=== PATIENT | female | born 2000 | race Caucasian/White ===

== ENCOUNTER 2020-02-21 17:04 | Emergency (ER) | payer OTHER ==
[~2020-02-21 17:04] MED LIST: COLACE 100MG C100 MG PO; FEOSOL325 MG PO; IBUPROFEN600 MG PO; NORCO 10-325 T1 EACH PO
[2020-02-21 17:52] LABS: HEMOGLOBIN 11.2 gm/dl (12.3-15.3); RED BLOOD COUNT 4.26 M/UL (4.00-5.10); WHITE BLOOD COUNT 10.6 K/UL (4.5-11.0)
[2020-02-21 18:13] LABS: BUN/CREATININE RATIO 7 (0-10)
[2020-04-28] MEDS ORDERED: DOCUSATE SODIU100 MG PO (12:59)
[2020-04-28] MEDS ORDERED: HYDROCODONE-AC1 EAC1 PO (12:59)
[2020-04-28] MEDS ORDERED: IBUPROFEN800 MG PO (12:59)
== END 2020-02-21 19:49 | disposition home or self-care (01) ==
LOC: ER1 17:04
PROVIDERS: Emergency Medicine
DX: R55 Syncope and collapse (principal)
CPT/HCPCS: 80053; 82550; 82553; 83874; 83880; 84484; 85025; 93005; 99284; J7030

== ENCOUNTER 2020-04-28 08:00 | Inpatient (IN) | payer OTHER ==
[~2020-04-28] VITALS: Ht 147.3 cm; Wt 74.8 kg
[2020-04-28] MEDS ORDERED: HYDROCODONE-AC1 EAC1 PO (12:59)
[2020-04-28] MEDS ORDERED: DOCUSATE SODIU100 MG PO (12:59)
[2020-04-28] MEDS ORDERED: IBUPROFEN800 MG PO (12:59)
[2020-04-29 06:19] LABS: HEMOGLOBIN 8.7 gm/dl (12.3-15.3)
== END 2020-04-29 16:02 | disposition home or self-care (01) | DRG 788 ==
LOC: OB 08:13
PROVIDERS: ADMIT Obstetrics & Gynecology
PROC: 10D00Z1 Extraction of Products of Conception, Low, Open Approach (ICD-10-PCS; principal; 2020-04-28 09:30)
DX: O34.211 Maternal care for low transverse scar from previous cesarean delivery (principal); Z3A.39 39 weeks gestation of pregnancy; Z37.0 Single live birth
CPT/HCPCS: 36415; 81001; 82800; 85014; 85018; 85025; C9113; J0690; J1885; J2210; J2274; J2405; J2590; J3010; J7120